=== PATIENT | male | born 1980 | race African-American/Black ===

== ENCOUNTER → 2017-04-01 | Outpatient (CLI) | payer OTHER | LOC: M WUC 10:50 | PROVIDERS: ATTEND Physician Assistant | DX: Z13.220 Encounter for screening for lipoid disorders (principal) ==

== ENCOUNTER 2018-04-21 19:10 | Emergency (ER) | payer SELFPAY, OTHER ==
[2018-04-21 21:33] LABS: BASO # 0.1 10^3/uL (0.0-0.2); BASO % 1.3 % (0.0-1.0); EOS # 0.1 10^3/uL (0.0-0.50); EOS % 1.6 % (0.0-3.0); HEMOGLOBIN 13.5 g/dl (13.5-17.5); IMMATURE GRANULOCYTE % 0.2 % (0-3.0); LYMPH # 2.1 10^3/uL (1.5-4.5); LYMPH % 46.4 % (24.0-44.0); MEAN CORPUSCULAR HGB CONC 32.9 g/dl (32.0-36.5); MEAN CORPUSCULAR VOLUME 88.2 fl (80.0-96.0); MONO # 0.6 10^3/uL (0.0-0.8); MONO % 12.8 % (0.0-5.0); NEUTROPHILS # 1.7 10^3/uL (1.8-7.7); NEUTROPHILS % 37.7 % (36.0-66.0); PLATELET COUNT, AUTOMATED 229 10^3/uL (150-450); RED BLOOD COUNT 4.65 10^6/uL (4.30-6.10); RED CELL DISTRIBUTION WIDTH 13.7 % (11.5-14.5); WHITE BLOOD COUNT 4.5 10^3/uL (4.0-10.0)
[2018-04-21] MEDS: CHLORTHALIDONE 25 MG TAB PO (21:33)
[2018-04-21] MEDS: LISINOPRIL 40 MG TAB PO (21:33)
[2018-04-21] MEDS: amLODIPine 5 MG TAB PO (21:35)
[2018-04-21 21:53] LABS: ANION GAP 6 MEQ/L (8-16); BLOOD UREA NITROGEN 15 MG/DL (7-18); CALCIUM LEVEL 8.7 MG/DL (8.5-10.1); CARBON DIOXIDE LEVEL 31 MEQ/L (21-32); CHLORIDE LEVEL 107 MEQ/L (98-107); CREATININE FOR GFR 1.14 MG/DL (0.70-1.30); GLOMERULAR FILTRATION RATE > 60.0 (>60); GLUCOSE, FASTING 76 MG/DL (70-100); SODIUM LEVEL 144 MEQ/L (136-145)
[2018-04-21] MEDS: POTASSIUM CHLORIDE 10 MEQ SR TABLET PO (23:02)
== END 2018-04-21 23:35 | disposition home or self-care (01) ==
LOC: M ED 19:10
DX: I10 Essential (primary) hypertension (principal); R51 Headache; Z88.0 Allergy status to penicillin; Z79.899 Other long term (current) drug therapy
CPT/HCPCS: 70450

== ENCOUNTER → 2018-04-27 | Outpatient (CLI) | payer SELFPAY ==
[2018-04-27 20:15] LABS: ALBUMIN/GLOBULIN RATIO 1.14 (1.00-1.93); ALKALINE PHOSPHATASE 64 U/L (45-117); ALT/SGPT 20 U/L (12-78); ANION GAP 10 MEQ/L (8-16); AST/SGOT 25 U/L (7-37); BILIRUBIN,TOTAL 1.5 MG/DL (0.2-1.0); BLOOD UREA NITROGEN 19 MG/DL (7-18); CALCIUM LEVEL 9.5 MG/DL (8.5-10.1); CARBON DIOXIDE LEVEL 28 MEQ/L (21-32); CHLORIDE LEVEL 103 MEQ/L (98-107); CREATININE FOR GFR 1.29 MG/DL (0.70-1.30); GLOMERULAR FILTRATION RATE > 60.0 (>60); GLUCOSE, FASTING 79 MG/DL (70-100); POTASSIUM SERUM 3.7 MEQ/L (3.5-5.1); SODIUM LEVEL 141 MEQ/L (136-145); TOTAL PROTEIN 7.5 GM/DL (6.4-8.2)
== END ==
LOC: M WUC 17:56
DX: E87.6 Hypokalemia (principal)

== ENCOUNTER 2018-12-12 14:28 | Emergency (ER) | payer OTHER, SELFPAY ==
[~2018-12-12] VITALS: Ht 172.7 cm; Wt 84.9 kg
[~2018-12-12 14:28] MED LIST: AMLO10TA5; CHLO125TA; LISI40TA; SPIR-10
[2018-12-12] MEDS ORDERED: ACETAMINOPHEN 500 MG TAB PO ONE (15:15)
[2018-12-12] MEDS ORDERED: METOCLOPRAMIDE INJ 10MG/2ML VIAL (J2765) IV ONE (15:15)
[2018-12-12] MEDS ORDERED: hydrALAZINE INJ 20 MG/ML VIAL IV ONE (15:15)
--- NOTE | 2018-12-12 15:23 | REP ---
CT brain without contrast: History: Headache. Comparison study: April 21, 2018. Findings: Preliminary digital qa specialist radiograph is unremarkable. Bone window settings demonstrate an intact bony calvarium. Visualized paranasal sinuses are clear. No intraorbital abnormality is seen. On soft tissue window settings, lateral, third, and fourth ventricles are normal in size and position. Francis-white differentiation pattern is normal above and below the tentorium. There is no evidence of intracranial hemorrhage. No extra-axial fluid collection is seen. No mass or midline shift is seen. No evidence of infarct. Impression: Negative noncontrast head CT. Electronically Signed by Rusty Cox MD 12/12/2018 03:14 P
[2018-12-12 16:00] LABS: BASO % 0.6 % (0.0-1.0); EOS % 0.2 % (0.0-3.0); HEMATOCRIT 42.1 % (42.0-52.0); HEMOGLOBIN 14.3 g/dl (13.5-17.5); LYMPH # 1.6 10^3/uL (1.5-4.5); LYMPH % 30.4 % (24.0-44.0); MEAN CORPUSCULAR HEMOGLOBIN 30.1 pg (27.0-33.0); MEAN CORPUSCULAR VOLUME 88.6 fl (80.0-96.0); MONO # 0.4 10^3/uL (0.0-0.8); MONO % 6.7 % (0.0-5.0); NEUTROPHILS # 3.4 10^3/uL (1.8-7.7); NEUTROPHILS % 61.9 % (36.0-66.0); PLATELET COUNT, AUTOMATED 239 10^3/uL (150-450); RED BLOOD COUNT 4.75 10^6/uL (4.30-6.10); WHITE BLOOD COUNT 5.4 10^3/uL (4.0-10.0)
[2018-12-12 16:24] LABS: AMPHETAMINES LEVEL URINE NEGATIVE (NEGATIVE); BARBITURATES URINE NEGATIVE (NEGATIVE); BENZODIAZEPINES URINE NEGATIVE (NEGATIVE); CANNABINOIDS URINE NEGATIVE (NEGATIVE); COCAINE METABOLITE URINE NEGATIVE (NEGATIVE); METHADONE URINE NEGATIVE (NEGATIVE); OPIATES URINE NEGATIVE (NEGATIVE); PHENCYCLIDINE URINE NEGATIVE (NEGATIVE)
[2018-12-12 16:36] LABS: BLOOD UREA NITROGEN 16 MG/DL (7-18); CALCIUM LEVEL 8.8 MG/DL (8.5-10.1); CARBON DIOXIDE LEVEL 27 MEQ/L (21-32); CHLORIDE LEVEL 106 MEQ/L (98-107); CPK CREATINE PHOSPHOKINASE 521 U/L (39-308); ETHYL ALCOHOL (ETHANOL) < 0.003 % (0.000-0.010); GLOMERULAR FILTRATION RATE > 60.0 (>60); GLUCOSE, FASTING 82 MG/DL (70-100); MB/CK RELATIVE INDEX 1.27 (< OR =4); POTASSIUM SERUM 3.2 MEQ/L (3.5-5.1); SODIUM LEVEL 140 MEQ/L (136-145); TROPONIN I 0.03 NG/ML (< 0.10)
[2018-12-12] MEDS ORDERED: amLODIPine 10 MG TAB PO ONE (16:45)
[2018-12-12] MEDS ORDERED: POTASSIUM CHLORIDE 10 MEQ SR TABLET PO ONE (16:45)
[2018-12-12 17:22] VITALS: BP 167/101
[2018-12-12] MEDS ORDERED: AMLO10TA5 PO (17:54)
[2018-12-12] MEDS ORDERED: CHLO125TA PO (17:54)
[2018-12-12] MEDS ORDERED: APAP325T4 PO (17:57)
[2018-12-12] MEDS ORDERED: KETOROLAC 30 MG/ML VIAL (J1885) IV ONE (18:00)
[2018-12-12 18:17] VITALS: BP 166/98
--- NOTE | 2018-12-13 05:52 | ECGEPIP ---
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
== END 2018-12-12 18:21 | disposition home or self-care (01) ==
LOC: M ED 14:28
DX: I10 Essential (primary) hypertension (principal); R51 Headache; Z79.899 Other long term (current) drug therapy; Z88.0 Allergy status to penicillin
CPT/HCPCS: 70450; 80048; 80307; 82550; 82553; 84443; 84484; 85025; 93005; 93041; 94760; 96374; 96375; 99285; G0480; J1885; J2765

== ENCOUNTER → 2019-08-05 | Outpatient (CLI) | payer OTHER ==
[~2019-08-05] MED LIST changes: +AMLO10TA5 PO; +APAP325T4 PO; +CHLO125TA PO
[2019-08-05 20:56] LABS: ALBUMIN 3.7 GM/DL (3.2-5.2); ALT/SGPT 26 U/L (12-78); BILIRUBIN,TOTAL 0.8 MG/DL (0.2-1.0); BLOOD UREA NITROGEN 23 MG/DL (7-18); CALCIUM LEVEL 8.7 MG/DL (8.5-10.1); CARBON DIOXIDE LEVEL 28 MEQ/L (21-32); CHLORIDE LEVEL 107 MEQ/L (98-107); CREATININE FOR GFR 1.24 MG/DL (0.70-1.30); GLOMERULAR FILTRATION RATE > 60.0 (>60); GLUCOSE, FASTING 77 MG/DL (70-100); SODIUM LEVEL 140 MEQ/L (136-145); TOTAL PROTEIN 7.4 GM/DL (6.4-8.2)
[2019-08-05 21:46] LABS: HIV 1&2 SCREEN CENTAUR NEGATIVE (NEGATIVE)
[2019-08-05 22:08] LABS: CHLAMYDIA DNA AMPLIFICATION NEGATIVE (NEGATIVE); GC DNA AMPLIFICATION NEGATIVE (NEGATIVE)
[2019-08-09 00:06] LABS: HSV TYPE II IgG SPECIFIC <0.91 index (0.00-0.90)
== END ==
LOC: M WUC 18:28
PROVIDERS: ATTEND Physician Assistant
DX: Z20.2 Contact with and (suspected) exposure to infections with a predominantly sexual mode of transmission (principal); I10 Essential (primary) hypertension

== ENCOUNTER → 2019-09-20 | Outpatient (REF) | payer OTHER ==
[2019-09-20 10:29] LABS: HEMOGLOBIN A1c 4.9 %; TOTAL 25(OH) VITAMIN D 12.6 NG/ML (30.0-100.0)
[2019-09-20 11:06] LABS: ALBUMIN 3.8 GM/DL (3.2-5.2); ALT/SGPT 27 U/L (12-78); BILIRUBIN,TOTAL 0.6 MG/DL (0.2-1.0); BLOOD UREA NITROGEN 24 MG/DL (7-18); CALCIUM LEVEL 9.2 MG/DL (8.5-10.1); CARBON DIOXIDE LEVEL 29 MEQ/L (21-32); CHLORIDE LEVEL 105 MEQ/L (98-107); CHOLESTEROL LEVEL 224 MG/DL (<200); CHOLESTEROL RISK RATIO 3.672 (<5); CREATININE FOR GFR 1.23 MG/DL (0.70-1.30); FREE T4 1.12 NG/DL (0.76-1.46); GLOMERULAR FILTRATION RATE > 60.0 (>60); GLUCOSE, FASTING 95 MG/DL (70-100); HDL CHOLESTEROL 61 MG/DL (>40); LDL CHOLESTEROL 109 MG/DL (<100); NON-HDL-C 163 MG/DL; POTASSIUM SERUM 3.7 MEQ/L (3.5-5.1); SODIUM LEVEL 138 MEQ/L (136-145); TOTAL PROTEIN 7.6 GM/DL (6.4-8.2); TRIGLYCERIDES LEVEL 270 MG/DL (<150)
== END ==
LOC: M SFHCPLAZ 07:56
PROVIDERS: ATTEND Physician Assistant
DX: Z00.00 Encounter for general adult medical examination without abnormal findings (principal); I10 Essential (primary) hypertension; Z13.29 Encounter for screening for other suspected endocrine disorder; Z13.1 Encounter for screening for diabetes mellitus; E78.5 Hyperlipidemia, unspecified

== ENCOUNTER → 2019-10-06 | Outpatient (CLI) | payer OTHER ==
--- NOTE | 2019-10-06 10:50 | REP ---
RENAL ULTRASOUND WITH DUPLEX DOPPLER RENAL ARTERY EVALUATION: Real-time ultrasound evaluation and duplex Doppler interrogation of the kidneys demonstrates both kidneys to be normal in size with hyperechoic echotexture suggesting some degree of medical renal disease. There is no hydronephrosis. Right kidney measures 11.1 x 5.6 x 5.0 cm and left kidney 11.3 x 4.8 x 5.5 cm. Cyst in the mid left kidney measures 9 mm in diameter. A cyst with a septation in the lower pole of the left kidney measures 2.2 cm in diameter. The urinary bladder is mildly distended and grossly unremarkable. Real-time ultrasound evaluation and duplex Doppler interrogation of the renal arteries is performed bilaterally. Peak systolic velocity of the abdominal aorta at the level of the renal arteries is 127 cm/s. Peak systolic velocity of the main right renal artery is 111 cm/s, qjcvn-vl-dgglix ratio 0.9. Resistive indices are measured in the upper, middle, and lower thirds of the right kidney and range between 0.49 and 0.59. Acceleration times range between 0.04 and 0.05. Peak systolic velocity of the main left renal artery is 75 cm/s, efwrm-hz-ciburh ratio 0.6. Main left renal artery bifurcates in the mid aspect. Resistive indices of the left kidney range between 0.56 and 0.63. Acceleration times range between 0.04 and 0.05. IMPRESSION: No compelling duplex Doppler sonographic evidence of significant renal artery stenosis bilaterally. Hyperechoic echotexture of the kidneys suggests some degree of medical renal disease. Electronically Signed by Duane Francis MD 10/06/2019 07:44 P
== END ==
LOC: M RAD 08:45
PROVIDERS: ATTEND Physician Assistant
DX: I10 Essential (primary) hypertension (principal)

== ENCOUNTER → 2021-10-07 | Outpatient (CLI) | payer OTHER ==
[~2021-10-07] MED LIST changes: -AMLO10TA5; -AMLO10TA5 PO; +AMLO1TAB25; +AMLO1TAB25 PO; -LISI40TA; +LISI40TA4
== END ==
LOC: M SLEEP HO 10:41
PROVIDERS: ATTEND Physician Assistant
DX: G47.9 Sleep disorder, unspecified (principal)

== ENCOUNTER → 2021-10-07 | Outpatient (CLI) | payer OTHER ==
[2021-10-07 12:37] LABS: HEMATOCRIT 42.9 % (42.0-52.0); MEAN CORPUSCULAR HEMOGLOBIN 28.5 pg (27.0-33.0); MEAN CORPUSCULAR HGB CONC 32.6 g/dl (32.0-36.5); MEAN CORPUSCULAR VOLUME 87.4 fl (80.0-96.0); PLATELET COUNT, AUTOMATED 263 10^3/uL (150-450); RED BLOOD COUNT 4.91 10^6/uL (4.30-6.10); WHITE BLOOD COUNT 4.9 10^3/uL (4.0-10.0)
[2021-10-07 13:10] LABS: ALBUMIN 3.7 GM/DL (3.2-5.2); ALT/SGPT 47 U/L (12-78); BILIRUBIN,TOTAL 0.5 MG/DL (0.2-1.0); BLOOD UREA NITROGEN 24 MG/DL (7-18); CALCIUM LEVEL 9.4 MG/DL (8.5-10.1); CARBON DIOXIDE LEVEL 30 MEQ/L (21-32); CHLORIDE LEVEL 106 MEQ/L (98-107); CHOLESTEROL LEVEL 172 MG/DL (<200); CHOLESTEROL RISK RATIO 2.819 (<5); CREATININE FOR GFR 1.13 MG/DL (0.70-1.30); GLOMERULAR FILTRATION RATE > 60.0 (>60); GLUCOSE, FASTING 95 MG/DL (70-100); HDL CHOLESTEROL 61 MG/DL (>40); LDL CHOLESTEROL 87 MG/DL (<100); MAGNESIUM LEVEL 2.1 MG/DL (1.8-2.4); NON-HDL-C 111 MG/DL; POTASSIUM SERUM 3.6 MEQ/L (3.5-5.1); SODIUM LEVEL 140 MEQ/L (136-145); TOTAL PROTEIN 7.6 GM/DL (6.4-8.2); TRIGLYCERIDES LEVEL 121 MG/DL (<150)
== END ==
LOC: M WUC 09:20
PROVIDERS: ATTEND Physician Assistant
DX: I25.10 Atherosclerotic heart disease of native coronary artery without angina pectoris (principal)

== ENCOUNTER → 2023-04-22 | Outpatient (CLI) | payer OTHER ==
[2023-04-22 17:20] LABS: HEMATOCRIT 42.5 % (42.0-52.0); HEMOGLOBIN 14.2 g/dl (13.5-17.5); MEAN CORPUSCULAR HEMOGLOBIN 29.2 pg (27.0-33.0); MEAN CORPUSCULAR HGB CONC 33.4 g/dl (32.0-36.5); MEAN CORPUSCULAR VOLUME 87.4 fl (80.0-96.0); PLATELET COUNT, AUTOMATED 248 10^3/uL (150-450); RED BLOOD COUNT 4.86 10^6/uL (4.30-6.10); WHITE BLOOD COUNT 4.5 10^3/uL (4.0-10.0)
[2023-04-22 17:30] LABS: ALBUMIN 3.8 G/DL (3.2-5.2); ALKALINE PHOSPHATASE 80 U/L (46-116); ALT/SGPT 47 U/L (7.0-40); AST/SGOT 58 U/L (<34); BILIRUBIN,TOTAL 1.3 MG/DL (0.3-1.2); BLOOD UREA NITROGEN 17 MG/DL (9-23); CARBON DIOXIDE LEVEL 28 MMOL/L (20-31); CHLORIDE LEVEL 104 MMOL/L (98-107); CHOLESTEROL LEVEL 142 MG/DL (<200); CREATININE FOR GFR 1.02 MG/DL (0.70-1.30); GLOMERULAR FILTRATION RATE > 60.0 (>60); GLUCOSE, FASTING 83 MG/DL (60-100); HDL CHOLESTEROL 52.4 MG/DL (>40); LDL CHOLESTEROL 73.4 MG/DL (<100); NON-HDL-C 89.6 MG/DL; POTASSIUM SERUM 3.4 MMOL/L (3.5-5.1); SODIUM LEVEL 141 MMOL/L (136-145); TOTAL PROTEIN 7.5 G/DL (5.7-8.2); TRIGLYCERIDES LEVEL 81 MG/DL (<150)
== END ==
LOC: M WUC 12:51
PROVIDERS: ATTEND Physician Assistant
DX: I25.10 Atherosclerotic heart disease of native coronary artery without angina pectoris (principal); I50.32 Chronic diastolic (congestive) heart failure; E78.2 Mixed hyperlipidemia

== ENCOUNTER → 2023-07-20 | Outpatient (REF) | payer OTHER | LOC: M LAB REF 16:13 | PROVIDERS: ATTEND Physician Assistant Medical | DX: B34.9 Viral infection, unspecified (principal) ==